=== PATIENT | male | born 1970 | race Caucasian/White ===

== ENCOUNTER 2016-12-22 16:26 | Emergency (ER) | payer MEDICAID ==
[2016-12-22 17:26] LABS: % IMMATURE GRANULYOCYTES 0.2 % (0.0-1.1); ABSOLUTE IMMATURE GRANULOCYTES 0.02 10^3/uL (0.00-0.10); ADD DIFF? NO; ADD MORPH? NO; ADD SCAN? NO; ATYPICAL LYMPHOCYTE FLAG 20 (0-99); FRAGMENT RBC FLAG 0 (0-99); HEMATOCRIT 40.5 % (40.0-51.0); HEMOGLOBIN 14.1 g/dL (13.7-17.5); LEFT SHIFT FLG 0 (0-99); LIPEMIA HEMOLYSIS FLAG 90 (0-99); MEAN CELL HEMOGLOBIN 35.4 pg (27.9-34.1); MEAN CELL HEMOGLOBIN CONCENTR. 34.8 g/dL (32.4-36.7); MEAN CELL VOLUME 101.8 fL (81.5-99.8); MEAN PLATELET VOLUME 10.3 fL (8.7-11.7); PLATELET CLUMPS FLAG 0 (0-99); PLATELET COUNT 182 10^3/uL (150-400); RED BLOOD CELL COUNT 3.98 10^6/uL (4.40-6.38); RED CELL DISTRIBUTION WIDTH 15.1 % (11.5-15.2)
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
[2016-12-22 17:34] LABS: ANION GAP 19 mEq/L (8-16); CALCIUM 9.5 mg/dL (8.5-10.4); CARBON DIOXIDE 18 mEq/l (22-31); CHLORIDE 107 mEq/L (97-110); CREATININE 0.7 mg/dL (0.7-1.3); GLOMERULAR FILTRATION RATE > 60; GLUCOSE 85 mg/dL (70-100); POTASSIUM 4.2 mEq/L (3.5-5.2); SALICYLATE < 1.0 mg/dL (2.0-20.0); SODIUM 144 mEq/L (134-144)
[2016-12-22 17:46] LABS: ETHANOL SERUM 413 mg/dL (0-10)
[2016-12-22] MEDS ORDERED: HALOPERIDOL LACT 5 MG/ML INJ ONE (19:56)
[2016-12-22] MEDS ORDERED: LORazepam 2 MG/ML INJ ONE (19:56)
[2016-12-22] MEDS ORDERED: LORazepam 2 MG/ML INJ IM ONE (20:19)
[2016-12-22] MEDS ORDERED: HALOPERIDOL LACT 5 MG/ML INJ IM PRN (20:19)
[2016-12-22] MEDS ORDERED: HALOPERIDOL LACT 5 MG/ML INJ IM ONE (20:21)
[2016-12-22 22:07] VITALS: RESP 16
[2016-12-23] MEDS ORDERED: CEPHALEXIN 500 MG CAP PO SCH
[2016-12-23 03:34] VITALS: O2SAT 97
[2016-12-23] MEDS ORDERED: CEPHALEXIN 500 MG CAP PO ONE (05:51)
[2016-12-23 06:29] VITALS: BP 121/71; PULSE 80; TEMP 98.6
== END 2016-12-23 06:29 | disposition home or self-care (01) ==
DX: F28 Other psychotic disorder not due to a substance or known physiological condition (principal); F10.929 Alcohol use, unspecified with intoxication, unspecified; F43.10 Post-traumatic stress disorder, unspecified; F17.200 Nicotine dependence, unspecified, uncomplicated
CPT/HCPCS: 80305; G0480; J2060